=== PATIENT | female | born 1930 | race Asian ===

== ENCOUNTER 2016-12-04 20:22 | Emergency (ER) | payer OTHER, MEDICAID ==
[2016-12-05 00:50] VITALS: BP 118/84
== END 2016-12-05 00:50 | disposition home or self-care (01) ==
LOC: ED 20:22
DX: K59.00 Constipation, unspecified (principal); E11.9 Type 2 diabetes mellitus without complications; I25.2 Old myocardial infarction; F32.9 Major depressive disorder, single episode, unspecified; Z79.84 Long term (current) use of oral hypoglycemic drugs; Z88.2 Allergy status to sulfonamides; Z86.73 Personal history of transient ischemic attack (TIA), and cerebral infarction without residual deficits; Z90.49 Acquired absence of other specified parts of digestive tract; Z79.4 Long term (current) use of insulin
CPT/HCPCS: 82962